=== PATIENT | female | born 1990 | race Caucasian/White ===

== ENCOUNTER 2020-08-23 13:22 | Emergency (ER) | payer OTHER, SELFPAY ==
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
[2020-08-23 13:26] VITALS: BP 157/104; PULSE 115; RESP 20; TEMP 36.6; O2SAT 100
[2020-08-23] MEDS: diazePAM INJ (*CRX) 10 MG/2 ML SYRINGE 5 MG IM (14:53)
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
[2020-08-23 15:51] VITALS: BP 144/98; PULSE 86; RESP 20; O2SAT 99
[2020-08-23 16:47] VITALS: BP 141/97; PULSE 95; RESP 22; O2SAT 99
== END 2020-08-23 16:50 | disposition home or self-care (01) ==
PROVIDERS: Emergency Provider Emergency Medicine
DX: S09.90XA Unspecified injury of head, initial encounter (principal); S16.1XXA Strain of muscle, fascia and tendon at neck level, initial encounter; V49.40XA Driver injured in collision with unspecified motor vehicles in traffic accident, initial encounter
CPT/HCPCS: 70450; 72125; 96372; 99284; J3360; L0140